=== PATIENT | male | born 1960 | race Caucasian/White ===

== ENCOUNTER 2016-10-28 18:08 | Emergency (ER) | payer MEDICAID, OTHER ==
[~2016-10-28] VITALS: Ht 180.3 cm; Wt 76.0 kg
[~2016-10-28 18:08] MED LIST: ALBU8I INH; ASPI325T PO; DIAZ10 PO; DILA4TAB10 PO; LISI-357 PO; PLAV75TA PO; PRED-1 PO; SIMV40 PO; XANA0.5T PO
[2016-10-28 18:12] VITALS: BP 131/84; PULSE 76; RESP 15; TEMP 98.3; O2SAT 99
[2016-10-28] MEDS ORDERED: CLIN1CAP5 PO (18:34)
--- NOTE | 2016-10-28 18:35 | PD ---
HPI Chief Complaint: Skin Problem Time Seen by Provider: 18:28 Travel History International Travel<30 days: No Contact w/Intl Traveler<30days: No Traveled to known affect area: No History of Present Illness HPI Patient's 56 years old. He had a few days of left foot swelling and erythema. It started after he wore tight shoe which abraded the dorsal aspect of the foot. He's had some pain is worse with walking. No fever. A triple antibiotic ointment was marginally helpful at home. PFSH Past Medical History Asthma: No Blood Disorders: No Bipolar Disorder: Yes Anxiety: Yes Depression: No Heart Rhythm Problems: No Cancer: No Cardiac Catheterization: Yes Cardiovascular Problems: Yes (stent x 1) High Cholesterol: Yes Chemotherapy: No Chest Pain: Yes Congestive Heart Failure: No COPD: Yes (BORDERLINE) Cerebrovascular Accident: Yes (HX OF 4) Coronary Artery Disease: Yes Diabetes: No Diminished Hearing: No Endocrine: No Gastrointestinal Disorders: Yes Genitourinary: Yes (mult kidney stones) Hepatitis: No Hiatal Hernia: No Hypertension: Yes Immune Disorder: Yes (lupus) Implanted Vascular Access Dvce: Yes Kidney Stones: Yes (RT. KIDNEY) Musculoskeletal: Yes Neurologic: Yes Psychiatric: Yes Reproductive: No Respiratory: Yes Immunizations Current: Yes Myocardial Infarction: Yes Pneumonia: Yes Radiation Therapy: No Shingles: Yes Sleep Apnea: No Thyroid Disease: No PNEUMOCCOCAL Vaccine (Year): 2 ?: Not Past Surgical History AICD: No Appendectomy: Yes Arteriovenous Shunt: No Body Medical Devices: cardiac STENT Cardiac Surgery: Yes (STENT : 05/2006) Coronary Artery Bypass Graft: No Coronary Stent: Yes (2005, 2013) Ear Surgery: No Endocrine Surgery: No Eye Surgery: No Genitourinary Surgery: Yes (CYSTO STENT RIGHT URETERAL, LITHOTRIPSY 07/06/10) Gynecologic Surgery: No Insulin Pump: No Joint Replacement: No Neurologic Surgery: No Oral Surgery: No Pacemaker: No Other Surgery: Yes Social History Alcohol Use: Yes (OCCASIONAL ) Tobacco Use: Yes (1PPD) Substance Use: Yes (marijauna- cocaine ) Allergies-Medications (Allergen,Severity, Reaction): Coded Allergies: Lortab (Verified Allergy, Severe, HIVES, 10/28/16) Penicillin (Verified Allergy, Severe, HIVES, 10/28/16) Uncoded Allergies: TYLENOL (Allergy, Severe, Anaphylaxis, 10/28/16) Reported Meds & Prescriptions Reported Meds & Active Scripts Active Ventolin Hfa (Albuterol Sulfate) 8 Gm Aero 2 Puff INH Q4 PRN * SHAKE WELL BEFORE USE * Reported Lisinopril 5 Mg Tab 5 Mg PO BID Prednisolone 5 Mg Tab 10 Mg PO Valium (Diazepam) 10 Mg Tab 10 Mg PO HS FOR 24 HOURS Dilaudid (Hydromorphone HCl) 4 Mg Tab 4 Mg PO Q4H Plavix (Clopidogrel Bisulfate) 75 Mg Tab 75 Mg PO DAILY Xanax 0.5 mg (Alprazolam) Alprazolam 0.5 mg Tab 1 Tab PO TID Aspirin 325 Mg Tab 325 Mg PO DAILY Zocor (Simvastatin) 40 Mg Tab 40 Mg PO DAILY Review of Systems Except as stated in HPI: all other systems reviewed are Neg General / Constitutional: No: Fever Physical Exam Narrative GENERAL: 56-year-old male well-nourished well-developed no acute dress SKIN: Focused skin assessment warm/dry. Erythema involving the left foot with some extension to the ankles. There is about 1+ pitting edema of the dorsum of the foot and ankles as well. There is a ulcerative lesion appears clean with trace discharge. 2+ dorsalis pedis. There is associated swelling of the calf left side; DVT is considered less likely. HEAD: Atraumatic. Normocephalic. EYES: Pupils equal and round. No scleral icterus. No injection or drainage. ENT: No nasal bleeding or discharge. Mucous membranes pink and moist. NECK: Trachea midline. No JVD. CARDIOVASCULAR: Regular rate and rhythm. No murmur appreciated. RESPIRATORY: No accessory muscle use. Clear to auscultation. Breath sounds equal bilaterally. GASTROINTESTINAL: Abdomen soft, non-tender, nondistended. Hepatic and splenic margins not palpable. MUSCULOSKELETAL: No obvious deformities. No clubbing. No cyanosis. No edema. NEUROLOGICAL: Awake and alert. No obvious cranial nerve deficits. Motor grossly within normal limits. Normal speech. PSYCHIATRIC: Appropriate mood and affect; insight and judgment normal. Data Data Last Documented VS Vital Signs Date Time Temp Pulse Resp B/P Pulse Ox O2 Delivery O2 Flow Rate FiO2 10/28/16 18:12 98.3 76 15 131/84 99 Vital signs reviewed MDM Medical Decision Making Medical Screen Exam Complete: Yes Emergency Medical Condition: Yes Medical Record Reviewed: Yes Differential Diagnosis Necrotizing fasciitis, abscess, DVT, cellulitis Narrative Course Patient has left foot cellulitis and open wound. Clindamycin prescription. Return precautions discussed. Diagnosis Primary Impression: Cellulitis Qualified Code: L03.116 - Cellulitis of left lower extremity Referrals: Primary Care Physician 2 days Additional Instructions: You have a choice when it comes to health care, and we are glad that you chose [facility]. Hopefully, we have met your expectations on today's visit. You are welcome to return to [facility] at any time, as we are committed to meeting the health care needs of our community. Med/Other Pt SpecificInfo: Prescription(s) given Scripts Clindamycin 150 Mg [id number] Mg PO TID 10 Days Ref 0 Prov:Maninder Chilel MD 10/28/16 Disposition: 01 DISCHARGE HOME Condition: Stable Maninder Chilel MD Oct 28, 2016 18:35
[2016-10-28] MEDS ORDERED: CLINDAMYCIN 150 MG CAP PO ONE (18:45)
== END 2016-10-28 18:53 | disposition home or self-care (01) ==
LOC: PHED 18:08
DX: L03.116 Cellulitis of left lower limb (principal); F17.210 Nicotine dependence, cigarettes, uncomplicated; I10 Essential (primary) hypertension; Z79.82 Long term (current) use of aspirin
CPT/HCPCS: 99283